=== PATIENT | male | born 1955 | race Caucasian/White ===

== ENCOUNTER 2022-04-03 09:06 | Emergency (ER) | payer MEDICARE, MEDICAID ==
[~2022-04-03] VITALS: Ht 170.2 cm; Wt 90.0 kg
[2022-04-03 10:02] LABS: BASOPHILS % 0.4 % (0.0-2.0); EOSINOPHILS % 3.6 % (0.0-5.0); HEMATOCRIT. 42.8 % (42.0-52.0); HEMOGLOBIN. 14.5 g/dL (14.0-18.0); LYMPHOCYTES % 25.7 % (20.0-50.0); MEAN CORPUSCULAR HEMOGLOBIN 28.8 pg (28.0-32.0); MEAN CORPUSCULAR VOLUME 84.7 fL (80.0-94.0); MONOCYTES % 11.9 % (2.0-8.0); NEUTROPHILS % 58.4 % (40.0-76.0); PLATELET 189 x1000/uL (130-400); RED BLOOD CELL COUNT 5.05 mill/uL (4.7-6.1); RED CELL DISTRIBUTION WIDTH 13.6 % (11.6-14.6)
[2022-04-03 10:09] LABS: CHLORIDE 104 mEq/L (98-107)
[2022-04-03 10:19] LABS: ETHANOL BLOOD < 10 mg/dL
[2022-04-03 12:02] LABS: *AMPHETAMINES SCREEN URINE NEGATIVE (NEGATIVE); *BARBITURATES SCREEN URINE NEGATIVE (NEGATIVE); *BENZODIAZEPINES SCREEN URINE NEGATIVE (NEGATIVE); *COCAINE SCREEN URINE NEGATIVE (NEGATIVE); CANNABINOID URINE SCREEN NEGATIVE (NEGATIVE); METHADONE URINE SCREEN NEGATIVE (NEGATIVE); OPIATES URINE SCREEN NEGATIVE (NEGATIVE); PHENCYCLIDINE URINE SCREEN NEGATIVE (NEGATIVE)
[2022-04-03] MEDS ORDERED: MORPHINE SULFATE 4 MG/ML CPJ (NOT FOR IM USE) IV STA (12:09)
[2022-04-03] MEDS ORDERED: ONDANSETRON HCL 4MG/2ML INJ IV STA (12:09)
[2022-04-03] MEDS ORDERED: FAMOTIDINE 20MG/2ML VIAL IV STA (12:09)
[2022-04-03] MEDS ORDERED: SODIUM CHLORIDE 0.9% 250 ML IV ONE (12:15)
[2022-04-03] MEDS ORDERED: IOHEXOL-350 100 ML BOTTLE ONE (17:35)
[2022-04-03 18:33] VITALS: BP 149/88
[2022-04-03] MEDS ORDERED: ENOXAPARIN 100MG/ML SYR SUBCUT NR (19:00)
== END 2022-04-03 18:33 | disposition short-term general hospital (02) ==
LOC: ER 09:06 → CANBEDREQ 04-04 02:15
DX: R07.89 Other chest pain (principal); R10.9 Unspecified abdominal pain; E11.9 Type 2 diabetes mellitus without complications; I10 Essential (primary) hypertension; Z86.73 Personal history of transient ischemic attack (TIA), and cerebral infarction without residual deficits; Z20.822 Contact with and (suspected) exposure to COVID-19
CPT/HCPCS: 36415; 71045; 71275; 76705; 80053; 80305; 80320; 82962; 83690; 83880; 84484; 85025; 85379; 87426; 93005; 93970; 96361; 96374; 96375; 99285; J2270; J2405; J3490; J7050; Q9967; G0480